=== PATIENT | male | born 1985 | race Caucasian/White ===

== ENCOUNTER 2017-01-17 09:59 | Emergency (ER) | payer OTHER ==
[2017-01-17 10:28] VITALS: BP 114/63
--- NOTE | 2017-01-17 11:38 | UC ---
Eye Complaint HPI - HPI Summary HPI Summary: 31 male presents with complaints of left eye redness, irritation, itchiness and drainage that began Tuesday01/14/17 and has worsened since. Patient states he has been battling a cold for the past 5-6 days however the eye symptoms are new. States his son just had similar symptoms about 1 week ago. States the drainage is yellow-green and thick. He has not taken any medications. States his eyes are slightly more blurred then usual, denies vision loss. States symptoms have began in right eye as well upon waking this morning. Also experienced his eye being crusted shut upon waking the past couple of mornings. Denies PMHx. No other complaints at this time. Does wear glasses however does not wear contact lenses. Denies photophobia and fever/chills. - History of Current Complaint Chief Complaint: UCEye Stated Complaint: EYE COMPLAINT Time Seen by Provider: 01/17/17 11:22 Hx Obtained From: Patient Onset/Duration: Sudden Onset, Lasting Days - 3 Timing: Constant Severity Initially: Moderate Severity Currently: Moderate Pain Intensity: 1 Pain Scale Used: 0-10 Numeric - discomfort - Allergies/Home Medications Allergies/Adverse Reactions: Allergies Allergy/AdvReac Type Severity Reaction Status Date / Time No Known Allergies Allergy Verified 01/17/17 10:28 PMH/Surg Hx/FS Hx/Imm Hx - Additional Past Medical History Additional PMH: Denies HTN, diabetes and asthma. No known PMHx. - Surgical History Surgical History: None - Family History Known Family History: Positive: None - Social History Alcohol Use: Weekly Substance Use Type: None Smoking Status (MU): Never Smoked Tobacco - Immunization History Vaccination Up to Date: Yes Review of Systems Constitutional: Negative Eyes: Blurred Vision, Drainage, Eye Redness ENT: Sore Throat, Nasal Discharge Respiratory: Negative Cardiovascular: Negative Gastrointestinal: Negative Musculoskeletal: Negative All Other Systems Reviewed And Are Negative: Yes Physical Exam Triage Information Reviewed: Yes Appearance: Well-Appearing, No Pain Distress, Well-Nourished Vital Signs: Initial Vital Signs Temp 97.8 F 01/17/17 10:24 Pulse 63 01/17/17 10:24 Resp 12 01/17/17 10:24 BP 114/63 01/17/17 10:24 Pulse Ox 99 01/17/17 10:24 Vital Signs Reviewed: Yes Eyes: Positive: Conjunctiva Inflamed, Discharge - teary eyes, also with some yellow crusting noted. very inflammed and erythematous left eye, some mild erythema and inflammation of right eye conjunctiva. visual acuity normal. fundoscopic exam normal. EOMI, PERRLA. no surrounding periorbital cellulitis, no FB or corneal abrasion ENT: Positive: Normal ENT inspection, Hearing grossly normal, Pharynx normal, Nasal congestion, TMs normal. Negative: Nasal drainage, TM bulging, TM dull, TM red, Tonsillar swelling, Tonsillar exudate Dental: Negative: Percussion Tenderness @, Cervical Lymphadenopathy Neck: Positive: Supple, Nontender, No Lymphadenopathy Respiratory: Positive: Chest non-tender, Lungs clear, Normal breath sounds, No respiratory distress, No accessory muscle use. Negative: Crackles, Rhonchi, Stridor, Wheezing Cardiovascular: Positive: RRR, No Murmur, Pulses Normal Musculoskeletal: Positive: Strength Intact, ROM Intact Neurological: Positive: Alert Psychological Exam: Normal Skin Exam: Normal Eye Complaint Course/Dx - Course Course Of Treatment: appears to be suffering from bacterial conjuncitivtis of left eye that appears to be beginning to effect right eye. given polytrim. does not wear contacts. educated on other etiology of viral or allergic conjunctivits. recommended to continue mucinex for cold symptoms/congestion and/ or try taking antihistamine. aware of worsening signs and symptoms. follow up with PCP. - Differential Dx/Diagnosis Differential Diagnosis/HQI/PQRI: Conjunctivitis, Corneal Abrasion, Foreign Body , Uveitis, Other Provider Diagnoses: Conjunctivitis left eye Discharge - Discharge Plan Condition: Stable Disposition: HOME Prescriptions: Polymyx/Trimethoprim OPTH* [Polytrim OPHTH*] 1 drop BOTH EYES Q3H #1 btl Patient Education Materials: Conjunctivitis (ED) Referrals: No Primary Care Phys,NOPCP [Primary Care Provider] - [facility] [Outside] Additional Instructions: Use prescribed antibiotic eye drop as directed in both eyes for the next 7 days. You may decrease use to three times daily for days 5-7. Also recommend taking an antihistamine over the counter to help with seasonal allergies/congestion. Wash hands frequently, avoid touching your eyes. Apply warm compresses. Wash pillow cases, towels and blankets frequently to avoid spread of germs, as this is contagious. Follow up with PCP. Return if symptoms worsen or do not improve.
== END 2017-01-17 11:43 | disposition home or self-care (01) ==
LOC: UCCORT 09:59
DX: H10.32 Unspecified acute conjunctivitis, left eye (principal)
CPT/HCPCS: 99202; G0463